=== PATIENT | male | born 1955 | race Caucasian/White ===

== ENCOUNTER 2018-05-22 19:39 | Inpatient (IN) | payer MEDICAID | END 2018-05-25 16:00 | disposition home or self-care (01) | LOC: TELE 05-23 03:01 → ER 19:39 → TELE-CENTR 05-23 20:23 | DX: J20.9 Acute bronchitis, unspecified (principal); E87.5 Hyperkalemia; I95.2 Hypotension due to drugs; R42 Dizziness and giddiness; R79.1 Abnormal coagulation profile; F15.90 Other stimulant use, unspecified, uncomplicated ==

== ENCOUNTER 2022-04-21 12:44 | Inpatient (IN) | payer OTHER, MEDICAID ==
[~2022-04-21] VITALS: Ht 182.9 cm; Wt 83.6 kg
[2022-04-21] MEDS ORDERED: FUROSEMIDE 40 MG/4 ML VIAL IV ONE ×2 (13:00→17:00)
[2022-04-21 13:27] LABS: Hematocrit 50.8 % (41.0-53.0); Hemoglobin 16.6 g/dL (13.5-17.5); Mean Corpuscular Hemoglobin 28.5 pg (28.0-32.0); Mean Corpuscular Hgb Conc. 32.6 g/dL (32.0-36.0); Mean Corpuscular Volume 87.5 fL (80.0-100.0); Red Cell Distribution Width 13.8 % (11.8-14.3)
[2022-04-21 13:35] LABS: Albumin 3.3 g/dL (3.4-5.0); Calcium 8.6 mg/dL (8.5-10.1); Potassium 5.3 mmol/L (3.5-5.1)
[2022-04-21 13:39] LABS: BUN/Creatinine Ratio 14.5; Bilirubin, Total 2.9 mg/dL (0.2-1.0); Total Protein 6.9 g/dL (6.4-8.2)
[2022-04-21 13:43] LABS: Basophils % (manual) 0 (0.0-2.0); Blast Cells 0; Eosinophils % (manual) 0 (0-7); Metamyelocytes % 0; Promyelocytes % 0; Reactive Lymphocytes 0
[2022-04-21] MEDS ORDERED: ENOXAPARIN SOD 100 MG/1 ML SYRINGE SC ONE (14:15)
[2022-04-21 14:41] LABS: Band Neutrophils % (manual) 15; Lymphocytes % (manual) 4 (10.0-50.0); Monocytes % (manual) 3 (0-12); Myelocytes % 2
[2022-04-21] MEDS ORDERED: NITROGLYCERIN 0.4 MG SL TAB SL PRN (15:15)
[2022-04-21] MEDS ORDERED: ONDANSETRON HCL 4 MG/2 ML VIAL IV PRN (15:15)
[2022-04-21] MEDS ORDERED: HYDROcodone-ACET 5/325MG TAB PO PRN (15:15)
[2022-04-21] MEDS ORDERED: ACETAMINOPHEN 325 MG TAB PO PRN (15:15)
[2022-04-21] MEDS ORDERED: MORPHINE SULFATE INJ 2 MG/ml SYRG IV PRN (15:15)
[2022-04-21] MEDS ORDERED: DOCUSATE SOD 100 MG CAP PO PRN (15:15)
[2022-04-21] MEDS ORDERED: NOREPINEPHRINE 8 MG/250ML KIT 250 ML IV ONE ×2 (16:14→23:37)
[2022-04-21] MEDS ORDERED: NOREPINEPHRINE 8 MG/250ML KIT 250 ML IV SCH (16:15)
[2022-04-21] MEDS ORDERED: NOREPINEPHRINE 8 MG/250ML KIT 250 ML IV PRN (16:15)
[2022-04-21] MEDS ORDERED: cefTRIAXone 1GM/50ML D5W 50 ML IV ONE (16:45)
[2022-04-21] MEDS ORDERED: SODIUM CHLORIDE 0.9% 3,000 ML IV ONE (16:45)
[2022-04-21 16:51] LABS: Lactic Acid w/Reflex 4.7 mmol/L (0.4-2.0)
[2022-04-21] MEDS ORDERED: PHENYLEPHRINE IV 250 ML IV ONE (18:56)
[2022-04-21] MEDS ORDERED: dilTIAZem 125mg/125ml BAG KIT 125 ML IV ONE (18:57)
[2022-04-21] MEDS: dilTIAZem 125mg/125ml BAG KIT 125 ML IV SCH (19:17)
[2022-04-21] MEDS: PHENYLEPHRINE IV 250 ML IV SCH ×2 (19:18→23:37)
[2022-04-21] MEDS ORDERED: ETOMIDATE (2MG/ML) 20ML VIAL IV ONE ×2 (19:21→19:30)
[2022-04-21] MEDS ORDERED: MIDAZOLAM DRIP 50 mg/50mL 50 ML IV ONE (19:21)
[2022-04-21] MEDS ORDERED: SUCCINYLCHOLINE CHLORIDE 20 MG/ML 10ML VIAL IV ONE ×4 (19:22→21:00)
[2022-04-21] MEDS ORDERED: VANCOMYCIN 1GM/250ML 250 ML IV ONE (19:30)
[2022-04-21] MEDS ORDERED: VANCOMYCIN PER PHARMACY 0 MG IV SCH (19:30)
[2022-04-21] MEDS: MIDAZOLAM DRIP 50 mg/50mL 50 ML IV SCH ×2 (19:37→22:15)
[2022-04-21] MEDS ORDERED: PROPOFOL 100 ML IV ONE (20:25)
[2022-04-21] MEDS: PROPOFOL 100 ML IV SCH (20:30)
[2022-04-21 21:00] LABS: INR 1.4 (0.9-1.15); Partial Thromboplastin Time 36.5 sec (24.6-33.4)
[2022-04-21 21:44] VITALS: BP 80/56
[2022-04-21] MEDS ORDERED: ACETAMINOPHEN 650 mg PER 20.3 mL UD PO ONE (21:45)
[2022-04-21] MEDS ORDERED: CLINDAMYCIN 600MG IV 50 ML IV SCH (22:00)
[2022-04-21] MEDS: SODIUM CHLOR 0.9% PF (SALINE LOCK) 10ML VIAL/SYR IV SCH (22:22)
[2022-04-21] MEDS ORDERED: VASOPRESSIN 20 UNIT/ML ONE (23:03)
[2022-04-21 23:13] VITALS: BP 88/56
[2022-04-21] MEDS: VASOPRESSIN 20 UNITS in SODIUM CHL 0.9% 99 ML IV SCH ×2 (23:14→23:18)
[2022-04-21] MEDS: NOREPINEPHRINE 8 MG/250ML KIT 250 ML IV SCH (23:45)
[2022-04-21 23:52] VITALS: BP 65/50
[2022-04-22] VITALS (21 sets, daily range): BP systolic 87–168; BP diastolic 37–71
[2022-04-22] MEDS: CEFEPIME 2 GM in SODIUM CHL 0.9% 50 ML IV SCH ×3 (00:07→22:12)
[2022-04-22 00:52] LABS: Urine Bacteria NONE SEEN /hpf (None Seen); Urine Blood 3+ /uL (Negative); Urine Hyaline Cast MOD /lpf (0 - 2); Urine Mucus FEW (None Seen); Urine Specific Gravity 1.016 (1.001-1.035); Urine Sperm PRESENT /hpf (None Seen); Urine WBC 10 /hpf (0 - 3)
[2022-04-22 01:05] LABS: Alcohol, Urine < 3.0 mg/dL (0-10); Amphetamine Screen, Urine POSITIVE (NEGATIVE); Barbiturate Scree,Urine NEGATIVE (NEGATIVE); Benzodiazephine Screen, Urine NEGATIVE (NEGATIVE); Cannabinoid Screen, Urine NEGATIVE (NEGATIVE); Cocaine Screen, Urine NEGATIVE (NEGATIVE); Opiate Scree,Urine POSITIVE (NEGATIVE); Phencyclidine Screen, Urine NEGATIVE (NEGATIVE)
[2022-04-22] MEDS: PROPOFOL 100 ML IV SCH ×2 (01:24→08:29)
[2022-04-22] MEDS: PHENYLEPHRINE IV 250 ML IV SCH ×5 (01:38→12:39)
[2022-04-22] MEDS: dilTIAZem 125mg/125ml BAG KIT 125 ML IV SCH (02:34)
[2022-04-22] MEDS: MIDAZOLAM DRIP 50 mg/50mL 50 ML IV SCH ×5 (02:46→22:44)
[2022-04-22] MEDS: NOREPINEPHRINE 8 MG/250ML KIT 250 ML IV SCH ×2 (04:17→08:31)
[2022-04-22 05:09] LABS: Hematocrit 51.2 % (41.0-53.0); Hemoglobin 16.8 g/dL (13.5-17.5); Mean Corpuscular Hemoglobin 29.1 pg (28.0-32.0); Mean Corpuscular Hgb Conc. 32.8 g/dL (32.0-36.0); Mean Corpuscular Volume 88.8 fL (80.0-100.0); Red Blood Cells 5.76 10^6/uL (4.5-5.90); Red Cell Distribution Width 13.9 % (11.8-14.3)
[2022-04-22 05:20] LABS: Albumin 2.7 g/dL (3.4-5.0); BUN/Creatinine Ratio 17.6; Calcium 7.7 mg/dL (8.5-10.1); Potassium 5.1 mmol/L (3.5-5.1)
[2022-04-22 05:22] LABS: Bilirubin, Total 1.7 mg/dL (0.2-1.0)
[2022-04-22 05:27] LABS: White Blood Cell 33.9 10^3/uL (4.4-10.8)
[2022-04-22 05:28] LABS: Basophils % (manual) 0 (0.0-2.0); Eosinophils % (manual) 0 (0-7); Metamyelocytes % 0; Promyelocytes % 0; Reactive Lymphocytes 0
[2022-04-22 05:29] LABS: Blast Cells 0
[2022-04-22] MEDS: SODIUM CHLOR 0.9% PF (SALINE LOCK) 10ML VIAL/SYR IV SCH ×3 (06:10→22:12)
[2022-04-22 06:51] LABS: Lymphocytes % (manual) 5 (10.0-50.0); Monocytes % (manual) 4 (0-12); Myelocytes % 8
[2022-04-22 06:52] LABS: Band Neutrophils % (manual) 28
[2022-04-22] MEDS ORDERED: VANCOMYCIN 1GM/250ML 250 ML IV ONE (09:00)
[2022-04-22] MEDS ORDERED: cefTRIAXone 1GM/50ML D5W 50 ML IV SCH (09:00)
[2022-04-22] MEDS: VASOPRESSIN 20 UNITS in SODIUM CHL 0.9% 99 ML IV SCH ×2 (10:07→21:14)
[2022-04-22] MEDS: ENOXAPARIN SOD 40 MG/0.4 ML SYRINGE SC SCH (10:25)
[2022-04-22] MEDS: ACETAMINOPHEN 650 mg PER 20.3 mL UD GT PRN ×2 (13:19→22:43)
[2022-04-22] MEDS ORDERED: SODIUM BICARBONATE 50ML VIAL 100 ML in D5W 5% 1,000 ML IV SCH ×4 (13:45)
[2022-04-22] MEDS ORDERED: PANTOPRAZOLE 40 MG/10 ML VIAL INJ IV ONE (13:45)
[2022-04-22] MEDS ORDERED: fentaNYL Drip 2500mCg/250mlNS 250 ML IV SCH (14:15)
[2022-04-22] MEDS ORDERED: AMIODARONE 450mg/250ml AE 250 ML IV SCH ×2 (14:30→20:30)
[2022-04-22] MEDS: fentaNYL Drip 2500mCg/250mlNS 250 ML IV SCH (15:01)
[2022-04-22] MEDS: DIGOXIN (250MCG/ML) 2 ML AMPULE IV SCH ×2 (15:38→20:57)
[2022-04-22] MEDS: PHENYLEPHRINE INJ 80 MG in SODIUM CHL 0.9% 242 ML IV SCH (15:39)
[2022-04-22] MEDS: NOREPINEPHRINE BITARTRATE 32 MG in SODIUM CHL 0.9% 218 ML IV SCH (15:40)
[2022-04-22] MEDS ORDERED: SODIUM BICARBONATE 50ML VIAL 150 ML in D5W 5% 1,000 ML IV SCH ×2 (16:15→19:45)
[2022-04-22] MEDS: LINEZOLID 600MG/300ML 300 ML IV SCH (22:12)
[2022-04-22] MEDS ORDERED: PHENYLEPHRINE HCL 10 MG/ML VL ONE (23:49)
[2022-04-23] VITALS (102 sets, daily range): BP systolic 85–144; BP diastolic 41–89
[2022-04-23] MEDS: DIGOXIN (250MCG/ML) 2 ML AMPULE IV SCH (02:38)
[2022-04-23] MEDS: MIDAZOLAM DRIP 50 mg/50mL 50 ML IV SCH ×3 (03:21→10:15)
[2022-04-23 05:10] LABS: Hematocrit 50.7 % (41.0-53.0); Hemoglobin 16.3 g/dL (13.5-17.5); Mean Corpuscular Hemoglobin 28.5 pg (28.0-32.0); Mean Corpuscular Hgb Conc. 32.1 g/dL (32.0-36.0); Mean Corpuscular Volume 88.9 fL (80.0-100.0); Red Cell Distribution Width 14.6 % (11.8-14.3); White Blood Cell 26.4 10^3/uL (4.4-10.8)
[2022-04-23 05:13] LABS: Basophils % (manual) 0 (0.0-2.0); Blast Cells 0; Myelocytes % 0; Promyelocytes % 0; Reactive Lymphocytes 0
[2022-04-23 05:58] LABS: Potassium 4.6 mmol/L (3.5-5.1)
[2022-04-23 06:09] LABS: Albumin 2.4 g/dL (3.4-5.0); BUN/Creatinine Ratio 21.9; Bilirubin, Total 1.1 mg/dL (0.2-1.0); Calcium 7.2 mg/dL (8.5-10.1)
[2022-04-23] MEDS: SODIUM CHLOR 0.9% PF (SALINE LOCK) 10ML VIAL/SYR IV SCH ×3 (06:59→22:06)
[2022-04-23] MEDS: PHENYLEPHRINE INJ 80 MG in SODIUM CHL 0.9% 242 ML IV SCH ×2 (07:21→14:30)
[2022-04-23] MEDS: VASOPRESSIN 20 UNITS in SODIUM CHL 0.9% 99 ML IV SCH ×2 (08:21→19:28)
[2022-04-23 10:01] LABS: Band Neutrophils % (manual) 30; Eosinophils % (manual) 1 (0-7); Lymphocytes % (manual) 7 (10.0-50.0); Metamyelocytes % 2; Monocytes % (manual) 11 (0-12)
[2022-04-23] MEDS: CEFEPIME 2 GM in SODIUM CHL 0.9% 50 ML IV SCH ×2 (10:03→22:00)
[2022-04-23] MEDS: LINEZOLID 600MG/300ML 300 ML IV SCH ×2 (10:03→22:18)
[2022-04-23] MEDS: ENOXAPARIN SOD 40 MG/0.4 ML SYRINGE SC SCH (10:03)
[2022-04-23] MEDS: PANTOPRAZOLE 40 MG/10 ML VIAL INJ IV SCH (10:03)
[2022-04-23] MEDS: fentaNYL Drip 2500mCg/250mlNS 250 ML IV SCH ×3 (13:45→22:00)
[2022-04-23] MEDS ORDERED: AMIODARONE 450mg/250ml AE 250 ML IV SCH (13:45)
[2022-04-23] MEDS: NOREPINEPHRINE BITARTRATE 32 MG in SODIUM CHL 0.9% 218 ML IV SCH (14:56)
[2022-04-23 15:26] LABS: White Blood Cell 31.9 10^3/uL (4.4-10.8)
[2022-04-23] MEDS: PROPOFOL 100 ML IV SCH (20:45)
[2022-04-24] VITALS (94 sets, daily range): BP systolic 57–127; BP diastolic 32–77
[2022-04-24] MEDS: MIDAZOLAM DRIP 50 mg/50mL 50 ML IV SCH ×3 (00:27→11:13)
[2022-04-24] MEDS: SODIUM CHLOR 0.9% PF (SALINE LOCK) 10ML VIAL/SYR IV SCH ×3 (05:20→22:35)
[2022-04-24] MEDS: VASOPRESSIN 20 UNITS in SODIUM CHL 0.9% 99 ML IV SCH ×2 (05:20→17:42)
[2022-04-24 06:31] LABS: Potassium 3.8 mmol/L (3.5-5.1)
[2022-04-24 06:38] LABS: Albumin 1.9 g/dL (3.4-5.0); BUN/Creatinine Ratio 28.1; Calcium 8.4 mg/dL (8.5-10.1)
[2022-04-24 06:40] LABS: Bilirubin, Total 1.3 mg/dL (0.2-1.0); Total Protein 6.3 g/dL (6.4-8.2)
[2022-04-24 06:45] LABS: Basophils # (auto) 0 10 ^3/uL (0-0.2); Basophils % (auto) 0.2 % (0.0-2.0); Eosinophils # (auto) 0.2 10 ^3/uL (0-0.8); Eosinophils % (auto) 1.2 % (0.0-7.0); Hematocrit 49.2 % (41.0-53.0); Hemoglobin 16.4 g/dL (13.5-17.5); Lymphocytes # (auto) 1.3 10 ^3/uL (0.4-5.4); Lymphocytes % (auto) 7.8 % (10.0-50.0); Mean Corpuscular Hemoglobin 29.2 pg (28.0-32.0); Mean Corpuscular Hgb Conc. 33.4 g/dL (32.0-36.0); Mean Corpuscular Volume 87.5 fL (80.0-100.0); Monocytes % (auto) 6.4 % (0.0-12.0); Neutrophils # (auto) 13.7 10 ^3/uL (1.6-8.6); Neutrophils % (auto) 84.4 % (37.0-80.0); Nucleated Red Blood Cells % 0.1 %; Red Blood Cells 5.62 10^6/uL (4.5-5.90); Red Cell Distribution Width 14.4 % (11.8-14.3); White Blood Cell 16.3 10^3/uL (4.4-10.8)
[2022-04-24] MEDS ORDERED: LACTATED RINGER'S 1,000 ML IV ONE (07:45)
[2022-04-24] MEDS ORDERED: SODIUM CHLORIDE 0.9% 1,000 ML IV ONE (08:00)
[2022-04-24] MEDS: CEFEPIME 2 GM in SODIUM CHL 0.9% 50 ML IV SCH ×2 (10:05→22:34)
[2022-04-24] MEDS ORDERED: ENOXAPARIN SOD 40 MG/0.4 ML SYRINGE SC ONE (10:15)
[2022-04-24] MEDS: PANTOPRAZOLE 40 MG/10 ML VIAL INJ IV SCH (10:44)
[2022-04-24] MEDS: AMIODARONE HCL 200 MG TAB PO SCH ×2 (10:44→22:35)
[2022-04-24] MEDS: LINEZOLID 600MG/300ML 300 ML IV SCH ×2 (10:47→22:34)
[2022-04-24] MEDS: NOREPINEPHRINE BITARTRATE 32 MG in SODIUM CHL 0.9% 218 ML IV SCH (14:30)
[2022-04-24] MEDS: PHENYLEPHRINE INJ 80 MG in SODIUM CHL 0.9% 242 ML IV SCH (14:30)
[2022-04-24] MEDS: PROPOFOL 100 ML IV SCH (20:45)
[2022-04-25] VITALS (97 sets, daily range): BP systolic 80–129; BP diastolic 28–71
[2022-04-25] MEDS: VASOPRESSIN 20 UNITS in SODIUM CHL 0.9% 99 ML IV SCH ×2 (04:49→15:56)
[2022-04-25 06:24] LABS: Basophils # (auto) 0.1 10 ^3/uL (0-0.2); Basophils % (auto) 0.8 % (0.0-2.0); Eosinophils # (auto) 0.3 10 ^3/uL (0-0.8); Hematocrit 47.1 % (41.0-53.0); Hemoglobin 15.8 g/dL (13.5-17.5); Lymphocytes # (auto) 1.1 10 ^3/uL (0.4-5.4); Lymphocytes % (auto) 8.1 % (10.0-50.0); Mean Corpuscular Hemoglobin 29.2 pg (28.0-32.0); Mean Corpuscular Hgb Conc. 33.6 g/dL (32.0-36.0); Mean Corpuscular Volume 87.1 fL (80.0-100.0); Monocytes # (auto) 1.3 10 ^3/uL (0-1.3); Monocytes % (auto) 9.2 % (0.0-12.0); Neutrophils # (auto) 11.2 10 ^3/uL (1.6-8.6); Neutrophils % (auto) 79.9 % (37.0-80.0); Nucleated Red Blood Cells % 0.6 %; Red Blood Cells 5.41 10^6/uL (4.5-5.90); Red Cell Distribution Width 14.2 % (11.8-14.3); White Blood Cell 14.1 10^3/uL (4.4-10.8)
[2022-04-25] MEDS: SODIUM CHLOR 0.9% PF (SALINE LOCK) 10ML VIAL/SYR IV SCH ×3 (06:31→22:17)
[2022-04-25 06:43] LABS: Potassium 4.8 mmol/L (3.5-5.1)
[2022-04-25 06:48] LABS: BUN/Creatinine Ratio 30.3; Total Protein 6.2 g/dL (6.4-8.2)
[2022-04-25] MEDS: MIDAZOLAM DRIP 50 mg/50mL 50 ML IV SCH ×2 (07:42→15:47)
[2022-04-25] MEDS: AMIODARONE HCL 200 MG TAB PO SCH ×2 (09:47→22:17)
[2022-04-25] MEDS: PANTOPRAZOLE 40 MG/10 ML VIAL INJ IV SCH (09:47)
[2022-04-25] MEDS: ENOXAPARIN SOD 40 MG/0.4 ML SYRINGE SC SCH (09:47)
[2022-04-25] MEDS: CEFEPIME 2 GM in SODIUM CHL 0.9% 50 ML IV SCH (09:48)
[2022-04-25] MEDS: LINEZOLID 600MG/300ML 300 ML IV SCH ×2 (09:48→22:17)
[2022-04-25] MEDS: fentaNYL Drip 2500mCg/250mlNS 250 ML IV SCH (13:45)
[2022-04-25] MEDS: NOREPINEPHRINE BITARTRATE 32 MG in SODIUM CHL 0.9% 218 ML IV SCH (14:30)
[2022-04-25] MEDS: PHENYLEPHRINE INJ 80 MG in SODIUM CHL 0.9% 242 ML IV SCH ×2 (14:30→21:45)
[2022-04-25] MEDS: PROPOFOL 100 ML IV SCH (20:45)
[2022-04-26] VITALS (81 sets, daily range): BP systolic 88–171; BP diastolic 48–90
[2022-04-26] MEDS: CEFEPIME 2 GM in SODIUM CHL 0.9% 50 ML IV SCH ×2 (00:16→10:46)
[2022-04-26] MEDS: VASOPRESSIN 20 UNITS in SODIUM CHL 0.9% 99 ML IV SCH (03:03)
[2022-04-26] MEDS: EPINEPHrine HCL 250 ML IV SCH (03:10)
[2022-04-26 06:30] LABS: Hematocrit 53.3 % (41.0-53.0); Hemoglobin 17.2 g/dL (13.5-17.5); Mean Corpuscular Hemoglobin 28.5 pg (28.0-32.0); Mean Corpuscular Hgb Conc. 32.4 g/dL (32.0-36.0); Red Blood Cells 6.05 10^6/uL (4.5-5.90); Red Cell Distribution Width 14.6 % (11.8-14.3); White Blood Cell 18.2 10^3/uL (4.4-10.8)
[2022-04-26 06:49] LABS: Albumin 2.3 g/dL (3.4-5.0); Calcium 8.6 mg/dL (8.5-10.1); Magnesium 3.1 mg/dL (1.6-2.6); Potassium 4.4 mmol/L (3.5-5.1)
[2022-04-26 06:53] LABS: BUN/Creatinine Ratio 33.5; Bilirubin, Total 0.9 mg/dL (0.2-1.0); Total Protein 7.2 g/dL (6.4-8.2)
[2022-04-26 07:18] LABS: Basophils % (manual) 0 (0.0-2.0); Blast Cells 0; Eosinophils % (manual) 0 (0-7); Reactive Lymphocytes 0
[2022-04-26] MEDS: SODIUM CHLOR 0.9% PF (SALINE LOCK) 10ML VIAL/SYR IV SCH ×3 (09:04→22:18)
[2022-04-26] MEDS ORDERED: DIGOXIN 0.125 MG TAB PO SCH (10:00)
[2022-04-26] MEDS: LINEZOLID 600MG/300ML 300 ML IV SCH ×2 (10:00→22:18)
[2022-04-26] MEDS: PANTOPRAZOLE 40 MG/10 ML VIAL INJ IV SCH (10:46)
[2022-04-26] MEDS: ENOXAPARIN SOD 40 MG/0.4 ML SYRINGE SC SCH (10:46)
[2022-04-26] MEDS ORDERED: ATROPINE SULFATE 1 MG/1 ML VIAL ONE (10:52)
[2022-04-26] MEDS ORDERED: DOPamine 1600MCG/ML D5W 250 ML IV ONE (10:56)
[2022-04-26] MEDS: DOPamine 1600MCG/ML D5W 250 ML IV SCH ×2 (11:14→19:37)
[2022-04-26 11:41] LABS: Band Neutrophils % (manual) 8; Lymphocytes % (manual) 10 (10.0-50.0); Metamyelocytes % 3; Monocytes % (manual) 11 (0-12); Myelocytes % 1; Promyelocytes % 1
[2022-04-26] MEDS: fentaNYL Drip 2500mCg/250mlNS 250 ML IV SCH (13:45)
[2022-04-26] MEDS: NOREPINEPHRINE BITARTRATE 32 MG in SODIUM CHL 0.9% 218 ML IV SCH (14:30)
[2022-04-26] MEDS: MIDAZOLAM DRIP 50 mg/50mL 50 ML IV SCH (19:45)
[2022-04-26] MEDS: Jevity 1.2 Cal/Fiber 1 Liter GT SCH (20:27)
[2022-04-26] MEDS: PROPOFOL 100 ML IV SCH (20:45)
[2022-04-26] MEDS: ACETAMINOPHEN 650 mg PER 20.3 mL UD GT PRN (23:18)
[2022-04-27] VITALS (97 sets, daily range): BP systolic 92–145; BP diastolic 54–86
[2022-04-27] MEDS: CEFEPIME 2 GM in SODIUM CHL 0.9% 50 ML IV SCH ×2 (00:46→13:02)
[2022-04-27] MEDS: DOPamine 1600MCG/ML D5W 250 ML IV SCH ×4 (01:24→16:30)
[2022-04-27] MEDS: EPINEPHrine HCL 250 ML IV SCH (03:10)
[2022-04-27] MEDS: MIDAZOLAM DRIP 50 mg/50mL 50 ML IV SCH ×2 (04:42→16:18)
[2022-04-27 06:38] LABS: Basophils # (auto) 0 10 ^3/uL (0-0.2); Basophils % (auto) 0.2 % (0.0-2.0); Eosinophils # (auto) 0.3 10 ^3/uL (0-0.8); Eosinophils % (auto) 3.1 % (0.0-7.0); Hematocrit 48.7 % (41.0-53.0); Hemoglobin 16.1 g/dL (13.5-17.5); Lymphocytes # (auto) 0.8 10 ^3/uL (0.4-5.4); Lymphocytes % (auto) 7.3 % (10.0-50.0); Mean Corpuscular Hemoglobin 28.7 pg (28.0-32.0); Mean Corpuscular Hgb Conc. 33.2 g/dL (32.0-36.0); Mean Corpuscular Volume 86.5 fL (80.0-100.0); Monocytes # (auto) 1.2 10 ^3/uL (0-1.3); Monocytes % (auto) 11.4 % (0.0-12.0); Neutrophils # (auto) 8.1 10 ^3/uL (1.6-8.6); Nucleated Red Blood Cells % 0.1 %; Red Blood Cells 5.63 10^6/uL (4.5-5.90); Red Cell Distribution Width 14.3 % (11.8-14.3); White Blood Cell 10.3 10^3/uL (4.4-10.8)
[2022-04-27] MEDS: SODIUM CHLOR 0.9% PF (SALINE LOCK) 10ML VIAL/SYR IV SCH ×3 (06:53→21:32)
[2022-04-27 06:58] LABS: Albumin 1.9 g/dL (3.4-5.0); BUN/Creatinine Ratio 37.3; Bilirubin, Total 0.8 mg/dL (0.2-1.0); Total Protein 6.6 g/dL (6.4-8.2)
[2022-04-27 08:09] LABS: Potassium 4.1 mmol/L (3.5-5.1)
[2022-04-27] MEDS: PANTOPRAZOLE 40 MG/10 ML VIAL INJ IV SCH (10:30)
[2022-04-27] MEDS: LINEZOLID 600MG/300ML 300 ML IV SCH ×2 (10:30→21:32)
[2022-04-27] MEDS: ENOXAPARIN SOD 40 MG/0.4 ML SYRINGE SC SCH (10:30)
[2022-04-27] MEDS ORDERED: FUROSEMIDE 20 MG/2 ML VIAL IV ONE (11:00)
[2022-04-27] MEDS: fentaNYL Drip 2500mCg/250mlNS 250 ML IV SCH ×2 (13:45→16:18)
[2022-04-27] MEDS: NOREPINEPHRINE BITARTRATE 32 MG in SODIUM CHL 0.9% 218 ML IV SCH (14:30)
[2022-04-27] MEDS: Jevity 1.2 Cal/Fiber 1 Liter GT SCH (18:24)
[2022-04-28] VITALS (99 sets, daily range): BP systolic 89–133; BP diastolic 40–77
[2022-04-28] MEDS: CEFEPIME 2 GM in SODIUM CHL 0.9% 50 ML IV SCH ×2 (00:35→12:00)
[2022-04-28] MEDS: MIDAZOLAM DRIP 50 mg/50mL 50 ML IV SCH ×3 (00:37→21:25)
[2022-04-28] MEDS: DOPamine 1600MCG/ML D5W 250 ML IV SCH ×2 (00:38→16:44)
[2022-04-28] MEDS: ACETAMINOPHEN 650 mg PER 20.3 mL UD GT PRN (02:57)
[2022-04-28] MEDS: SODIUM CHLOR 0.9% PF (SALINE LOCK) 10ML VIAL/SYR IV SCH ×3 (05:31→21:04)
[2022-04-28 07:34] LABS: Basophils # (auto) 0.1 10 ^3/uL (0-0.2); Basophils % (auto) 0.5 % (0.0-2.0); Eosinophils # (auto) 0.4 10 ^3/uL (0-0.8); Hematocrit 46.9 % (41.0-53.0); Hemoglobin 15.6 g/dL (13.5-17.5); Lymphocytes # (auto) 1.1 10 ^3/uL (0.4-5.4); Lymphocytes % (auto) 9.3 % (10.0-50.0); Mean Corpuscular Hemoglobin 29.1 pg (28.0-32.0); Mean Corpuscular Hgb Conc. 33.3 g/dL (32.0-36.0); Mean Corpuscular Volume 87.3 fL (80.0-100.0); Monocytes # (auto) 1.7 10 ^3/uL (0-1.3); Monocytes % (auto) 14.2 % (0.0-12.0); Neutrophils # (auto) 8.7 10 ^3/uL (1.6-8.6); Nucleated Red Blood Cells % 0.2 %; Red Blood Cells 5.37 10^6/uL (4.5-5.90); Red Cell Distribution Width 14.1 % (11.8-14.3)
[2022-04-28 07:55] LABS: BUN/Creatinine Ratio 33.3; Calcium 7.9 mg/dL (8.5-10.1)
[2022-04-28] MEDS ORDERED: FUROSEMIDE 20 MG/2 ML VIAL IV SCH (10:00)
[2022-04-28] MEDS ORDERED: VANCOMYCIN PER PHARMACY 0 MG IV SCH (10:30)
[2022-04-28] MEDS: PANTOPRAZOLE 40 MG/10 ML VIAL INJ IV SCH (10:31)
[2022-04-28] MEDS: ENOXAPARIN SOD 40 MG/0.4 ML SYRINGE SC SCH (10:32)
[2022-04-28] MEDS ORDERED: VANCOMYCIN 1GM/250ML 250 ML IV ONE (11:15)
[2022-04-28] MEDS: NOREPINEPHRINE BITARTRATE 32 MG in SODIUM CHL 0.9% 218 ML IV SCH (14:30)
[2022-04-28] MEDS ORDERED: FUROSEMIDE 20 MG/2 ML VIAL IV ONE (15:45)
[2022-04-28] MEDS: PROPOFOL 100 ML IV SCH (20:45)
[2022-04-29] VITALS (101 sets, daily range): BP systolic 81–152; BP diastolic 45–73
[2022-04-29] MEDS: VANCOMYCIN 1GM/250ML 250 ML IV SCH ×2 (00:18→09:53)
[2022-04-29] MEDS: CEFEPIME 2 GM in SODIUM CHL 0.9% 50 ML IV SCH ×3 (01:30→23:31)
[2022-04-29] MEDS: fentaNYL Drip 2500mCg/250mlNS 250 ML IV SCH (03:51)
[2022-04-29] MEDS: ACETAMINOPHEN 650 mg PER 20.3 mL UD GT PRN ×2 (04:47→23:37)
[2022-04-29 05:08] LABS: Basophils # (auto) 0 10 ^3/uL (0-0.2); Basophils % (auto) 0.2 % (0.0-2.0); Eosinophils # (auto) 0.3 10 ^3/uL (0-0.8); Eosinophils % (auto) 2.6 % (0.0-7.0); Hematocrit 46.7 % (41.0-53.0); Hemoglobin 15.2 g/dL (13.5-17.5); Lymphocytes # (auto) 0.9 10 ^3/uL (0.4-5.4); Lymphocytes % (auto) 7.2 % (10.0-50.0); Mean Corpuscular Hemoglobin 28.1 pg (28.0-32.0); Mean Corpuscular Hgb Conc. 32.4 g/dL (32.0-36.0); Mean Corpuscular Volume 86.7 fL (80.0-100.0); Monocytes # (auto) 1.4 10 ^3/uL (0-1.3); Monocytes % (auto) 11.1 % (0.0-12.0); Neutrophils # (auto) 9.6 10 ^3/uL (1.6-8.6); Neutrophils % (auto) 78.9 % (37.0-80.0); Nucleated Red Blood Cells % 0.1 %; Red Blood Cells 5.39 10^6/uL (4.5-5.90); Red Cell Distribution Width 14.1 % (11.8-14.3); White Blood Cell 12.2 10^3/uL (4.4-10.8)
[2022-04-29 05:23] LABS: BUN/Creatinine Ratio 37.8; Calcium 8.4 mg/dL (8.5-10.1); Potassium 4.7 mmol/L (3.5-5.1)
[2022-04-29] MEDS: SODIUM CHLOR 0.9% PF (SALINE LOCK) 10ML VIAL/SYR IV SCH ×4 (06:29→21:31)
[2022-04-29] MEDS: DOPamine 1600MCG/ML D5W 250 ML IV SCH ×3 (06:29→23:31)
[2022-04-29] MEDS: PANTOPRAZOLE 40 MG/10 ML VIAL INJ IV SCH (09:21)
[2022-04-29] MEDS: ENOXAPARIN SOD 40 MG/0.4 ML SYRINGE SC SCH (09:22)
[2022-04-29] MEDS: FUROSEMIDE 20 MG/2 ML VIAL IV SCH (09:25)
[2022-04-29] MEDS ORDERED: LACTULOSE 20Gm/30ML SOLN PO ONE (13:15)
[2022-04-29] MEDS ORDERED: METOCLOPRAMIDE HCL 5MG/ml INJ 2ml VIAL IV ONE (13:45)
[2022-04-29] MEDS: NOREPINEPHRINE BITARTRATE 32 MG in SODIUM CHL 0.9% 218 ML IV SCH (14:30)
[2022-04-29 15:03] LABS: INR 1.1 (0.9-1.15)
[2022-04-29] MEDS: LORazepam 2MG/ML-1ML VIAL IV PRN ×2 (15:41→23:37)
[2022-04-29] MEDS ORDERED: LIDOCAINE 1% (LOCAL ANESTH.) PF 5ml SDV ID ONE (17:00)
[2022-04-29] MEDS: PROPOFOL 100 ML IV SCH (20:45)
[2022-04-29] MEDS: METOCLOPRAMIDE HCL 5MG/ml INJ 2ml VIAL IV SCH (21:30)
[2022-04-30] VITALS (104 sets, daily range): BP systolic 93–158; BP diastolic 39–82
[2022-04-30] MEDS: VANCOMYCIN 1GM/250ML 250 ML IV SCH ×3 (03:00→23:29)
[2022-04-30] MEDS: METOCLOPRAMIDE HCL 5MG/ml INJ 2ml VIAL IV SCH ×3 (06:14→22:11)
[2022-04-30] MEDS: SODIUM CHLOR 0.9% PF (SALINE LOCK) 10ML VIAL/SYR IV SCH ×3 (06:29→22:11)
[2022-04-30] MEDS: ACETAMINOPHEN 650 mg PER 20.3 mL UD GT PRN (07:55)
[2022-04-30] MEDS: PANTOPRAZOLE 40 MG/10 ML VIAL INJ IV SCH (09:44)
[2022-04-30] MEDS: ENOXAPARIN SOD 40 MG/0.4 ML SYRINGE SC SCH (09:44)
[2022-04-30] MEDS: fentaNYL Drip 2500mCg/250mlNS 250 ML IV SCH (09:45)
[2022-04-30] MEDS: FUROSEMIDE 20 MG/2 ML VIAL IV SCH (09:45)
[2022-04-30] MEDS: MIDAZOLAM DRIP 50 mg/50mL 50 ML IV SCH (09:46)
[2022-04-30] MEDS: NOREPINEPHRINE BITARTRATE 32 MG in SODIUM CHL 0.9% 218 ML IV SCH (09:46)
[2022-04-30 10:32] LABS: Basophils # (auto) 0 10 ^3/uL (0-0.2); Basophils % (auto) 0.3 % (0.0-2.0); Eosinophils # (auto) 0.4 10 ^3/uL (0-0.8); Eosinophils % (auto) 2.7 % (0.0-7.0); Hematocrit 44.6 % (41.0-53.0); Hemoglobin 14.9 g/dL (13.5-17.5); Lymphocytes # (auto) 1.2 10 ^3/uL (0.4-5.4); Lymphocytes % (auto) 8.6 % (10.0-50.0); Mean Corpuscular Hemoglobin 28.9 pg (28.0-32.0); Mean Corpuscular Hgb Conc. 33.4 g/dL (32.0-36.0); Mean Corpuscular Volume 86.5 fL (80.0-100.0); Monocytes # (auto) 1.5 10 ^3/uL (0-1.3); Monocytes % (auto) 11.2 % (0.0-12.0); Neutrophils # (auto) 10.4 10 ^3/uL (1.6-8.6); Neutrophils % (auto) 77.2 % (37.0-80.0); Nucleated Red Blood Cells % 0.1 %; Red Blood Cells 5.16 10^6/uL (4.5-5.90); Red Cell Distribution Width 13.5 % (11.8-14.3); White Blood Cell 13.4 10^3/uL (4.4-10.8)
[2022-04-30] MEDS ORDERED: MEROPENEM 1GM IVPB 100 ML IV ONE (11:15)
[2022-04-30 11:36] LABS: BUN/Creatinine Ratio 28.9; Potassium 4.2 mmol/L (3.5-5.1)
[2022-04-30 12:40] LABS: Urine Bacteria FEW /hpf (None Seen); Urine Blood Negative /uL (Negative); Urine Specific Gravity 1.008 (1.001-1.035); Urine WBC 1 /hpf (0 - 3)
[2022-04-30] MEDS: MEROPENEM 1GM IVPB 100 ML IV SCH (17:53)
[2022-04-30] MEDS: DOPamine 1600MCG/ML D5W 250 ML IV SCH (20:42)
[2022-04-30] MEDS: PROPOFOL 100 ML IV SCH (20:45)
[2022-05-01] VITALS (84 sets, daily range): BP systolic 94–146; BP diastolic 40–91
[2022-05-01] MEDS: PROPOFOL 100 ML IV SCH (00:01)
[2022-05-01] MEDS: MEROPENEM 1GM IVPB 100 ML IV SCH ×3 (02:11→17:36)
[2022-05-01] MEDS: fentaNYL Drip 2500mCg/250mlNS 250 ML IV SCH (04:19)
[2022-05-01 05:16] LABS: Basophils # (auto) 0.1 10 ^3/uL (0-0.2); Basophils % (auto) 0.5 % (0.0-2.0); Eosinophils # (auto) 0.5 10 ^3/uL (0-0.8); Eosinophils % (auto) 4.2 % (0.0-7.0); Hematocrit 42.4 % (41.0-53.0); Hemoglobin 14.2 g/dL (13.5-17.5); Lymphocytes # (auto) 1.4 10 ^3/uL (0.4-5.4); Lymphocytes % (auto) 10.6 % (10.0-50.0); Mean Corpuscular Hemoglobin 29.2 pg (28.0-32.0); Mean Corpuscular Hgb Conc. 33.4 g/dL (32.0-36.0); Mean Corpuscular Volume 87.3 fL (80.0-100.0); Monocytes # (auto) 1.5 10 ^3/uL (0-1.3); Monocytes % (auto) 11.9 % (0.0-12.0); Neutrophils # (auto) 9.4 10 ^3/uL (1.6-8.6); Neutrophils % (auto) 72.8 % (37.0-80.0); Nucleated Red Blood Cells % 0.1 %; Red Blood Cells 4.85 10^6/uL (4.5-5.90); Red Cell Distribution Width 14.1 % (11.8-14.3); White Blood Cell 12.9 10^3/uL (4.4-10.8)
[2022-05-01 05:33] LABS: Albumin 2.1 g/dL (3.4-5.0); Calcium 8.1 mg/dL (8.5-10.1); Potassium 3.9 mmol/L (3.5-5.1)
[2022-05-01 05:37] LABS: BUN/Creatinine Ratio 27.5; Bilirubin, Total 1.2 mg/dL (0.2-1.0)
[2022-05-01] MEDS: METOCLOPRAMIDE HCL 5MG/ml INJ 2ml VIAL IV SCH ×3 (05:59→21:48)
[2022-05-01] MEDS: LORazepam 2MG/ML-1ML VIAL IV PRN ×2 (08:40→23:59)
[2022-05-01] MEDS: DOPamine 1600MCG/ML D5W 250 ML IV SCH ×2 (09:24→22:06)
[2022-05-01] MEDS: PANTOPRAZOLE 40 MG/10 ML VIAL INJ IV SCH (10:20)
[2022-05-01] MEDS: SODIUM CHLOR 0.9% PF (SALINE LOCK) 10ML VIAL/SYR IV SCH ×2 (10:22→21:43)
[2022-05-01] MEDS: ENOXAPARIN SOD 40 MG/0.4 ML SYRINGE SC SCH (10:25)
[2022-05-01] MEDS: FUROSEMIDE 20 MG/2 ML VIAL IV SCH (10:25)
[2022-05-01] MEDS: VANCOMYCIN 1GM/250ML 250 ML IV SCH ×2 (11:49→23:00)
[2022-05-01] MEDS: NOREPINEPHRINE BITARTRATE 32 MG in SODIUM CHL 0.9% 218 ML IV SCH (14:30)
[2022-05-01] MEDS: MIDAZOLAM DRIP 50 mg/50mL 50 ML IV SCH (19:45)
[2022-05-01] MEDS: ACETAMINOPHEN 650 mg PER 20.3 mL UD GT PRN (23:45)
[2022-05-02] VITALS (25 sets, daily range): BP systolic 97–139; BP diastolic 45–81
[2022-05-02] MEDS: MEROPENEM 1GM IVPB 100 ML IV SCH ×3 (02:30→17:52)
[2022-05-02 05:32] LABS: Basophils # (auto) 0.1 10 ^3/uL (0-0.2); Basophils % (auto) 0.5 % (0.0-2.0); Eosinophils # (auto) 0.5 10 ^3/uL (0-0.8); Eosinophils % (auto) 4.8 % (0.0-7.0); Hematocrit 41.1 % (41.0-53.0); Hemoglobin 13.6 g/dL (13.5-17.5); Lymphocytes # (auto) 1.1 10 ^3/uL (0.4-5.4); Lymphocytes % (auto) 10.2 % (10.0-50.0); Mean Corpuscular Hemoglobin 28.7 pg (28.0-32.0); Mean Corpuscular Volume 86.9 fL (80.0-100.0); Monocytes # (auto) 1.5 10 ^3/uL (0-1.3); Monocytes % (auto) 13.1 % (0.0-12.0); Neutrophils # (auto) 7.9 10 ^3/uL (1.6-8.6); Neutrophils % (auto) 71.4 % (37.0-80.0); Nucleated Red Blood Cells % 0.1 %; Red Blood Cells 4.73 10^6/uL (4.5-5.90); White Blood Cell 11.1 10^3/uL (4.4-10.8)
[2022-05-02 05:45] LABS: Potassium 3.8 mmol/L (3.5-5.1)
[2022-05-02 05:55] LABS: Albumin 2.2 g/dL (3.4-5.0); BUN/Creatinine Ratio 27.3; Bilirubin, Total 1.2 mg/dL (0.2-1.0)
[2022-05-02] MEDS: METOCLOPRAMIDE HCL 5MG/ml INJ 2ml VIAL IV SCH (06:00)
[2022-05-02] MEDS: FUROSEMIDE 20 MG/2 ML VIAL IV SCH (10:11)
[2022-05-02] MEDS: PANTOPRAZOLE 40 MG/10 ML VIAL INJ IV SCH (10:11)
[2022-05-02] MEDS: SODIUM CHLOR 0.9% PF (SALINE LOCK) 10ML VIAL/SYR IV SCH ×2 (10:11→22:20)
[2022-05-02] MEDS: ENOXAPARIN SOD 40 MG/0.4 ML SYRINGE SC SCH (10:11)
[2022-05-02] MEDS: DOPamine 1600MCG/ML D5W 250 ML IV SCH (10:48)
[2022-05-02] MEDS: VANCOMYCIN 1GM/250ML 250 ML IV SCH (12:34)
[2022-05-02] MEDS: ACETAMINOPHEN 650 mg PER 20.3 mL UD GT PRN (15:32)
[2022-05-02] MEDS: CARVEDILOL 3.125 MG TAB PO SCH (22:20)
[2022-05-03] VITALS (13 sets, daily range): BP systolic 99–121; BP diastolic 36–66
[2022-05-03] MEDS: MEROPENEM 1GM IVPB 100 ML IV SCH ×2 (02:00→09:47)
[2022-05-03 05:40] LABS: Calcium 7.8 mg/dL (8.5-10.1); Potassium 3.9 mmol/L (3.5-5.1)
[2022-05-03 05:42] LABS: BUN/Creatinine Ratio 29.5
[2022-05-03] MEDS: VANCOMYCIN 1GM/250ML 250 ML IV SCH (08:47)
[2022-05-03] MEDS: PANTOPRAZOLE 40 MG/10 ML VIAL INJ IV SCH (09:45)
[2022-05-03] MEDS: CARVEDILOL 3.125 MG TAB PO SCH ×3 (09:45→21:56)
[2022-05-03] MEDS: ENOXAPARIN SOD 40 MG/0.4 ML SYRINGE SC SCH (09:46)
[2022-05-03] MEDS: SODIUM CHLOR 0.9% PF (SALINE LOCK) 10ML VIAL/SYR IV SCH ×2 (09:46→21:56)
[2022-05-03] MEDS: FUROSEMIDE 20 MG/2 ML VIAL IV SCH (09:46)
[2022-05-03] MEDS ORDERED: ASPirin 81 mg TAB PO ONE (10:45)
[2022-05-03] MEDS ORDERED: LISINOPRIL 10 MG TAB PO ONE (10:45)
[2022-05-03] MEDS: levoFLOXacin 500MG 100 ML IV SCH (13:44)
[2022-05-03] MEDS: LORazepam 0.5 MG TAB PO PRN (21:56)
[2022-05-04] MEDS: VANCOMYCIN 1GM/250ML 250 ML IV SCH ×2 (01:53→20:17)
[2022-05-04] MEDS: LORazepam 0.5 MG TAB PO PRN (04:13)
[2022-05-04 05:48] VITALS: BP 121/61
[2022-05-04 06:33] LABS: BUN/Creatinine Ratio 26.4; Calcium 8.1 mg/dL (8.5-10.1); Potassium 3.8 mmol/L (3.5-5.1)
[2022-05-04 06:50] LABS: Basophils # (auto) 0.1 10 ^3/uL (0-0.2); Basophils % (auto) 0.9 % (0.0-2.0); Eosinophils # (auto) 0.7 10 ^3/uL (0-0.8); Eosinophils % (auto) 6.2 % (0.0-7.0); Hematocrit 41.4 % (41.0-53.0); Hemoglobin 14.1 g/dL (13.5-17.5); Lymphocytes # (auto) 1.8 10 ^3/uL (0.4-5.4); Lymphocytes % (auto) 17.2 % (10.0-50.0); Monocytes # (auto) 1.5 10 ^3/uL (0-1.3); Monocytes % (auto) 14.7 % (0.0-12.0); Neutrophils # (auto) 6.4 10 ^3/uL (1.6-8.6); Nucleated Red Blood Cells % 0.2 %; Red Blood Cells 4.87 10^6/uL (4.5-5.90); White Blood Cell 10.5 10^3/uL (4.4-10.8)
[2022-05-04 06:51] LABS: Mean Corpuscular Hgb Conc. 34.1 g/dL (32.0-36.0); Mean Corpuscular Volume 85.2 fL (80.0-100.0); Red Cell Distribution Width 13.6 % (11.8-14.3)
[2022-05-04 09:00] VITALS: BP 116/57
[2022-05-04] MEDS ORDERED: FUROSEMIDE 40 MG/4 ML VIAL IV ONE (10:00)
[2022-05-04] MEDS ORDERED: FUROSEMIDE 40 MG TAB PO SCH (10:00)
[2022-05-04] MEDS ORDERED: POTASSIUM CHL 20 Meq TABLET PO ONE (10:00)
[2022-05-04] MEDS: ASPirin 81 mg TAB PO SCH (10:31)
[2022-05-04] MEDS: CARVEDILOL 3.125 MG TAB PO SCH ×3 (10:32→21:37)
[2022-05-04] MEDS: LISINOPRIL 10 MG TAB PO SCH (10:32)
[2022-05-04] MEDS: ENOXAPARIN SOD 40 MG/0.4 ML SYRINGE SC SCH (10:33)
[2022-05-04] MEDS: PANTOPRAZOLE 40 MG/10 ML VIAL INJ IV SCH (10:33)
[2022-05-04] MEDS: SODIUM CHLOR 0.9% PF (SALINE LOCK) 10ML VIAL/SYR IV SCH ×2 (10:36→21:41)
[2022-05-04] MEDS: levoFLOXacin 500MG 100 ML IV SCH (10:38)
[2022-05-04 17:00] VITALS: BP 94/64
[2022-05-04] MEDS: FUROSEMIDE 40 MG TAB PO SCH (18:00)
[2022-05-04] MEDS: POTASSIUM CHL 10 Meq TABLET PO SCH (21:37)
[2022-05-04 22:00] VITALS: BP 106/68
[2022-05-05] MEDS: FUROSEMIDE 40 MG TAB PO SCH ×2 (05:14→17:31)
[2022-05-05 05:23] VITALS: BP 116/64
[2022-05-05] MEDS: ACETAMINOPHEN 650 mg PER 20.3 mL UD GT PRN (06:02)
[2022-05-05 06:32] LABS: Basophils # (auto) 0.1 10 ^3/uL (0-0.2); Basophils % (auto) 1.1 % (0.0-2.0); Eosinophils # (auto) 0.6 10 ^3/uL (0-0.8); Eosinophils % (auto) 6.3 % (0.0-7.0); Hematocrit 42.3 % (41.0-53.0); Hemoglobin 14.4 g/dL (13.5-17.5); Lymphocytes # (auto) 1.6 10 ^3/uL (0.4-5.4); Lymphocytes % (auto) 16.8 % (10.0-50.0); Mean Corpuscular Hemoglobin 28.9 pg (28.0-32.0); Mean Corpuscular Hgb Conc. 33.9 g/dL (32.0-36.0); Mean Corpuscular Volume 85.2 fL (80.0-100.0); Monocytes # (auto) 1.3 10 ^3/uL (0-1.3); Monocytes % (auto) 13.6 % (0.0-12.0); Neutrophils # (auto) 5.9 10 ^3/uL (1.6-8.6); Neutrophils % (auto) 62.2 % (37.0-80.0); Red Blood Cells 4.97 10^6/uL (4.5-5.90); Red Cell Distribution Width 13.8 % (11.8-14.3); White Blood Cell 9.5 10^3/uL (4.4-10.8)
[2022-05-05 07:00] LABS: Albumin 2.6 g/dL (3.4-5.0)
[2022-05-05 07:04] LABS: BUN/Creatinine Ratio 23.1; Bilirubin, Total 0.8 mg/dL (0.2-1.0); Total Protein 6.4 g/dL (6.4-8.2)
[2022-05-05 09:00] VITALS: BP 105/67
[2022-05-05] MEDS: ENOXAPARIN SOD 40 MG/0.4 ML SYRINGE SC SCH (10:00)
[2022-05-05] MEDS: PANTOPRAZOLE 40 MG/10 ML VIAL INJ IV SCH (10:00)
[2022-05-05] MEDS: POTASSIUM CHL 10 Meq TABLET PO SCH ×2 (10:00→21:53)
[2022-05-05] MEDS: ASPirin 81 mg TAB PO SCH (10:00)
[2022-05-05] MEDS: CARVEDILOL 3.125 MG TAB PO SCH ×2 (10:00→21:54)
[2022-05-05] MEDS: LISINOPRIL 10 MG TAB PO SCH (10:00)
[2022-05-05] MEDS: levoFLOXacin 500MG 100 ML IV SCH (10:00)
[2022-05-05] MEDS: SODIUM CHLOR 0.9% PF (SALINE LOCK) 10ML VIAL/SYR IV SCH ×2 (10:00→21:56)
[2022-05-05] MEDS: VANCOMYCIN 1GM/250ML 250 ML IV SCH (15:16)
[2022-05-05 17:29] VITALS: BP 102/65
[2022-05-05 22:00] VITALS: BP 105/57
[2022-05-06] MEDS: ACETAMINOPHEN 650 mg PER 20.3 mL UD GT PRN (01:01)
[2022-05-06 05:00] VITALS: BP 122/58
[2022-05-06] MEDS: FUROSEMIDE 40 MG TAB PO SCH ×2 (05:32→17:16)
[2022-05-06] MEDS: VANCOMYCIN 1GM/250ML 250 ML IV SCH (07:54)
[2022-05-06 08:00] VITALS: BP 104/57
[2022-05-06] MEDS: PANTOPRAZOLE 40 MG/10 ML VIAL INJ IV SCH (08:38)
[2022-05-06] MEDS: POTASSIUM CHL 10 Meq TABLET PO SCH ×2 (08:40→22:19)
[2022-05-06] MEDS: ENOXAPARIN SOD 40 MG/0.4 ML SYRINGE SC SCH (08:40)
[2022-05-06] MEDS: ASPirin 81 mg TAB PO SCH (08:40)
[2022-05-06] MEDS: LISINOPRIL 10 MG TAB PO SCH (08:41)
[2022-05-06] MEDS: CARVEDILOL 3.125 MG TAB PO SCH ×2 (08:42→22:25)
[2022-05-06] MEDS: SODIUM CHLOR 0.9% PF (SALINE LOCK) 10ML VIAL/SYR IV SCH ×2 (08:44→22:19)
[2022-05-06] MEDS: levoFLOXacin 500MG 100 ML IV SCH (08:44)
[2022-05-06 12:00] VITALS: BP 105/74
[2022-05-06 16:00] VITALS: BP 101/60
[2022-05-06 17:47] VITALS: BP 104/54
[2022-05-06 22:40] VITALS: BP 95/66
[2022-05-07] MEDS: ACETAMINOPHEN 650 mg PER 20.3 mL UD GT PRN (00:40)
[2022-05-07] MEDS: VANCOMYCIN 1GM/250ML 250 ML IV SCH (01:58)
[2022-05-07 05:00] VITALS: BP 97/53
[2022-05-07] MEDS: FUROSEMIDE 40 MG TAB PO SCH (05:11)
[2022-05-07 08:00] VITALS: BP 104/53
[2022-05-07] MEDS: levoFLOXacin 500MG 100 ML IV SCH (11:35)
[2022-05-07] MEDS: ASPirin 81 mg TAB PO SCH (11:40)
[2022-05-07] MEDS: SODIUM CHLOR 0.9% PF (SALINE LOCK) 10ML VIAL/SYR IV SCH (11:40)
[2022-05-07] MEDS: PANTOPRAZOLE 40 MG/10 ML VIAL INJ IV SCH (11:41)
[2022-05-07] MEDS: POTASSIUM CHL 10 Meq TABLET PO SCH (11:45)
[2022-05-07] MEDS: CARVEDILOL 3.125 MG TAB PO SCH (11:48)
[2022-05-07] MEDS: LISINOPRIL 10 MG TAB PO SCH (11:49)
[2022-05-07] MEDS: ENOXAPARIN SOD 40 MG/0.4 ML SYRINGE SC SCH (11:49)
[2022-05-07 12:00] VITALS: BP 93/60
== END 2022-05-07 14:52 | disposition home or self-care (01) | DRG 870 ==
LOC: EDBD 12:44 → EDUNIT# 12:44 → ER 12:44 → TELE 15:18 → ICU CENTRL 04-23 00:01 → TELE-CENTR 05-03 13:02
PROVIDERS: ADMIT Nurse Practitioner Family; ATTEND Internal Medicine Pulmonary Disease
PROC: 5A1955Z Respiratory Ventilation, Greater than 96 Consecutive Hours (ICD-10-PCS; principal; 2022-04-22)
PROC: 0BH17EZ Insertion of Endotracheal Airway into Trachea, Via Natural or Artificial Opening (ICD-10-PCS; 2022-04-22)
PROC: 02HV33Z Insertion of Infusion Device into Superior Vena Cava, Percutaneous Approach (ICD-10-PCS; 2022-04-29)
PROC: B548ZZA Ultrasonography of Superior Vena Cava, Guidance (ICD-10-PCS; 2022-04-29)
DX: A40.3 Sepsis due to Streptococcus pneumoniae (principal); I21.4 Non-ST elevation (NSTEMI) myocardial infarction; J96.00 Acute respiratory failure, unspecified whether with hypoxia or hypercapnia; N17.0 Acute kidney failure with tubular necrosis; R65.21 Severe sepsis with septic shock; J18.9 Pneumonia, unspecified organism; I50.41 Acute combined systolic (congestive) and diastolic (congestive) heart failure; N39.0 Urinary tract infection, site not specified; J44.1 Chronic obstructive pulmonary disease with (acute) exacerbation; L03.116 Cellulitis of left lower limb; L03.115 Cellulitis of right lower limb; E44.0 Moderate protein-calorie malnutrition; I48.92 Unspecified atrial flutter; J44.0 Chronic obstructive pulmonary disease with (acute) lower respiratory infection; E87.4 Mixed disorder of acid-base balance; Z66 Do not resuscitate; I11.0 Hypertensive heart disease with heart failure; E66.9 Obesity, unspecified; I73.9 Peripheral vascular disease, unspecified; E78.5 Hyperlipidemia, unspecified; F15.10 Other stimulant abuse, uncomplicated; D69.6 Thrombocytopenia, unspecified; Z20.822 Contact with and (suspected) exposure to COVID-19; F17.210 Nicotine dependence, cigarettes, uncomplicated; I25.10 Atherosclerotic heart disease of native coronary artery without angina pectoris; I48.91 Unspecified atrial fibrillation; Z68.29 Body mass index [BMI] 29.0-29.9, adult; Z95.1 Presence of aortocoronary bypass graft; Z90.49 Acquired absence of other specified parts of digestive tract
CPT/HCPCS: 36415; 36569; 36600; 71045; 76775; 80048; 80053; 80162; 80202; 80307; 81001; 82550; 82805; 82962; 83605; 83735; 83880; 84443; 84484; 85007; 85025; 85027; 85379; 85610; 85730; 87040; 87070; 87077; 87081; 87086; 87186; 87205; 87426; 87804; 92610; 93005; 93306; 93925; 93971; 94002; 94003; 94640; 96365; 96372; 96375; 97110; 97116; 97163; 97530; 99291; C9113; G0378; J0330; J0461; J0696; J1956; J2185; J2250; J2704